=== PATIENT | female | born 1950 | race Caucasian/White ===

== ENCOUNTER → 2017-01-31 | Outpatient (CLI) | payer MEDICARE ==
[2017-01-31 09:02] LABS: MEAN CORPUSCULAR HEMOGLOBIN 31.5 pg (27.0-33.0); MEAN CORPUSCULAR HGB CONC 32.9 g/dl (32.0-36.5); MEAN CORPUSCULAR VOLUME 95.8 fl (80.0-96.0); RED CELL DISTRIBUTION WIDTH 13.4 % (11.5-14.5); WHITE BLOOD COUNT 3.9 K/mm3 (4.0-10.0)
[2017-01-31 09:24] LABS: ALBUMIN 3.5 GM/DL (3.2-5.2); ALBUMIN/GLOBULIN RATIO 1.13 (1.00-1.93); ALKALINE PHOSPHATASE 104 U/L (45-117); ALT/SGPT 20 U/L (12-78); ANION GAP 6 MEQ/L (8-16); AST/SGOT 23 U/L (15-37); BILIRUBIN,TOTAL 0.3 MG/DL (0.2-1.0); BLOOD UREA NITROGEN 14 MG/DL (7-18); CALCIUM LEVEL 8.2 MG/DL (8.8-10.2); CARBON DIOXIDE LEVEL 30 MEQ/L (21-32); CHLORIDE LEVEL 106 MEQ/L (98-107); CHOLESTEROL LEVEL 157 MG/DL (<200); CREATININE FOR GFR 0.82 MG/DL (0.55-1.02); GLOMERULAR FILTRATION RATE > 60.0 (>45); GLUCOSE, FASTING 94 MG/DL (80-110); SODIUM LEVEL 142 MEQ/L (136-145); TOTAL PROTEIN 6.6 GM/DL (6.4-8.2); TRIGLYCERIDES LEVEL 84 MG/DL (<150)
== END ==
LOC: M LAB 08:12
PROVIDERS: ATTEND Physician Assistant
DX: I25.10 Atherosclerotic heart disease of native coronary artery without angina pectoris (principal); I11.9 Hypertensive heart disease without heart failure; E78.00 Pure hypercholesterolemia, unspecified

== ENCOUNTER → 2017-08-17 | Outpatient (CLI) | payer MEDICARE ==
[2017-08-17 15:15] LABS: ALBUMIN 3.9 GM/DL (3.2-5.2); ALBUMIN/GLOBULIN RATIO 1.26 (1.00-1.93); ALKALINE PHOSPHATASE 104 U/L (45-117); ALT/SGPT 21 U/L (12-78); ANION GAP 7 MEQ/L (8-16); AST/SGOT 26 U/L (7-37); BILIRUBIN,TOTAL 0.4 MG/DL (0.2-1.0); BLOOD UREA NITROGEN 10 MG/DL (7-18); CALCIUM LEVEL 8.6 MG/DL (8.8-10.2); CARBON DIOXIDE LEVEL 28 MEQ/L (21-32); CHLORIDE LEVEL 104 MEQ/L (98-107); CREATININE FOR GFR 0.75 MG/DL (0.55-1.02); GLOMERULAR FILTRATION RATE > 60.0 (>45); GLUCOSE, FASTING 86 MG/DL (80-110); POTASSIUM SERUM 3.9 MEQ/L (3.5-5.1); SODIUM LEVEL 139 MEQ/L (136-145)
== END ==
LOC: M WUC 13:24
PROVIDERS: ATTEND Physician Assistant
DX: I25.10 Atherosclerotic heart disease of native coronary artery without angina pectoris (principal); I11.9 Hypertensive heart disease without heart failure; E78.00 Pure hypercholesterolemia, unspecified

== ENCOUNTER 2018-01-22 10:37 | Emergency (ER) | payer MEDICARE ==
[2018-01-22 13:34] LABS: BASO % 0.6 % (0.0-1.0); EOS # 0.1 10^3/uL (0.0-0.50); EOS % 1.1 % (0.0-3.0); HEMATOCRIT 42.2 % (36.0-47.0); HEMOGLOBIN 13.8 g/dl (12.0-15.5); IMMATURE GRANULOCYTE % 0.2 % (0-3.0); LYMPH # 1.3 10^3/uL (1.5-4.5); LYMPH % 23.9 % (24.0-44.0); MEAN CORPUSCULAR HEMOGLOBIN 31.1 pg (27.0-33.0); MEAN CORPUSCULAR HGB CONC 32.7 g/dl (32.0-36.5); MONO # 0.2 10^3/uL (0.0-0.8); MONO % 4.1 % (0.0-5.0); NEUTROPHILS # 3.8 10^3/uL (1.8-7.7); NEUTROPHILS % 70.1 % (36.0-66.0); PLATELET COUNT, AUTOMATED 210 10^3/uL (150-450); RED BLOOD COUNT 4.44 10^6/uL (4.00-5.40); RED CELL DISTRIBUTION WIDTH 13.2 % (11.5-14.5); WHITE BLOOD COUNT 5.4 10^3/uL (4.0-10.0)
[2018-01-22 13:55] LABS: ALBUMIN/GLOBULIN RATIO 1.14 (1.00-1.93); ALKALINE PHOSPHATASE 111 U/L (45-117); ALT/SGPT 19 U/L (12-78); ANION GAP 4 MEQ/L (8-16); AST/SGOT 29 U/L (7-37); BILIRUBIN,DIRECT < 0.1 MG/DL (0.0-0.2); BILIRUBIN,TOTAL 0.3 MG/DL (0.2-1.0); BLOOD UREA NITROGEN 9 MG/DL (7-18); CALCIUM LEVEL 8.8 MG/DL (8.8-10.2); CARBON DIOXIDE LEVEL 29 MEQ/L (21-32); CHLORIDE LEVEL 107 MEQ/L (98-107); CPK CREATINE PHOSPHOKINASE 115 U/L (26-192); CREATININE FOR GFR 0.84 MG/DL (0.55-1.30); GLOMERULAR FILTRATION RATE > 60.0 (>45); GLUCOSE, FASTING 84 MG/DL (70-100); LIPASE 197 U/L (73-393); POTASSIUM SERUM 4.3 MEQ/L (3.5-5.1); SODIUM LEVEL 140 MEQ/L (136-145); TOTAL PROTEIN 7.5 GM/DL (6.4-8.2); TROPONIN I < 0.02 NG/ML (< 0.10)
[2018-01-22 13:56] LABS: CK-MB VALUE MASS < 1.0 NG/ML (<3.6); MB/CK RELATIVE INDEX 0.86 (< OR =4)
== END 2018-01-22 14:16 | disposition home or self-care (01) ==
LOC: M ED 10:37
DX: R51 Headache (principal); M54.9 Dorsalgia, unspecified; R00.1 Bradycardia, unspecified; I45.19 Other right bundle-branch block; I25.2 Old myocardial infarction; J44.9 Chronic obstructive pulmonary disease, unspecified; K57.90 Diverticulosis of intestine, part unspecified, without perforation or abscess without bleeding; Z95.5 Presence of coronary angioplasty implant and graft; F17.200 Nicotine dependence, unspecified, uncomplicated; Z79.82 Long term (current) use of aspirin; Z79.899 Other long term (current) drug therapy
CPT/HCPCS: 71046

== ENCOUNTER → 2018-01-25 | Outpatient (CLI) | payer MEDICARE | LOC: M WUC 14:40 | DX: M16.11 Unilateral primary osteoarthritis, right hip (principal) | CPT/HCPCS: 73502 ==

== ENCOUNTER → 2018-02-19 | Outpatient (CLI) | payer MEDICARE ==
[2018-02-19 09:02] LABS: HEMATOCRIT 40.4 % (36.0-47.0); HEMOGLOBIN 13.3 g/dl (12.0-15.5); MEAN CORPUSCULAR HEMOGLOBIN 31.1 pg (27.0-33.0); MEAN CORPUSCULAR HGB CONC 32.9 g/dl (32.0-36.5); MEAN CORPUSCULAR VOLUME 94.6 fl (80.0-96.0); PLATELET COUNT, AUTOMATED 196 10^3/uL (150-450); RED BLOOD COUNT 4.27 10^6/uL (4.00-5.40); RED CELL DISTRIBUTION WIDTH 13.2 % (11.5-14.5)
[2018-02-19 09:34] LABS: ALBUMIN 3.6 GM/DL (3.2-5.2); ALBUMIN/GLOBULIN RATIO 1.09 (1.00-1.93); ALKALINE PHOSPHATASE 108 U/L (45-117); ALT/SGPT 18 U/L (12-78); ANION GAP 5 MEQ/L (8-16); AST/SGOT 24 U/L (7-37); BILIRUBIN,TOTAL 0.4 MG/DL (0.2-1.0); BLOOD UREA NITROGEN 9 MG/DL (7-18); CALCIUM LEVEL 8.8 MG/DL (8.8-10.2); CARBON DIOXIDE LEVEL 29 MEQ/L (21-32); CHLORIDE LEVEL 108 MEQ/L (98-107); CHOLESTEROL LEVEL 152 MG/DL (<200); CHOLESTEROL RISK RATIO 2.533 (<5); CREATININE FOR GFR 0.75 MG/DL (0.55-1.30); GLOMERULAR FILTRATION RATE > 60.0 (>45); GLUCOSE, FASTING 93 MG/DL (70-100); HDL CHOLESTEROL 60 MG/DL (>40); LDL CHOLESTEROL 76.6 MG/DL (<100); NON-HDL-C 92 MG/DL; POTASSIUM SERUM 4.4 MEQ/L (3.5-5.1); SODIUM LEVEL 142 MEQ/L (136-145); TOTAL PROTEIN 6.9 GM/DL (6.4-8.2); TRIGLYCERIDES LEVEL 77 MG/DL (<150)
== END ==
LOC: M WUC 08:24
DX: I25.10 Atherosclerotic heart disease of native coronary artery without angina pectoris (principal); I11.9 Hypertensive heart disease without heart failure; E78.00 Pure hypercholesterolemia, unspecified
CPT/HCPCS: 80053

== ENCOUNTER → 2018-02-28 | Outpatient (CLI) | payer MEDICARE | LOC: M RAD 12:03 | DX: R92.2 Inconclusive mammogram (principal); N63.20 Unspecified lump in the left breast, unspecified quadrant | CPT/HCPCS: 77067 ==

== ENCOUNTER → 2018-03-09 | Outpatient (CLI) | payer MEDICARE | LOC: M RAD 13:13 | DX: N63.20 Unspecified lump in the left breast, unspecified quadrant (principal) | CPT/HCPCS: 77065 ==

== ENCOUNTER → 2018-03-23 | Outpatient (CLI) | payer MEDICARE | LOC: M RAD 11:13 | DX: I70.293 Other atherosclerosis of native arteries of extremities, bilateral legs (principal); I65.23 Occlusion and stenosis of bilateral carotid arteries; Z95.820 Peripheral vascular angioplasty status with implants and grafts | CPT/HCPCS: 93880 ==

== ENCOUNTER → 2018-04-09 | Outpatient (CLI) | payer MEDICARE ==
[~2018-04-09] MED LIST: LIDOCAINE 1% MDV 20ML VIAL As Ordered
== END ==
LOC: M RADPRO 13:29
DX: D24.2 Benign neoplasm of left breast (principal)
CPT/HCPCS: 19083

== ENCOUNTER → 2018-04-11 | Outpatient (CLI) | payer MEDICARE ==
[2018-04-11 14:25] LABS: BASO % 0.6 % (0.0-1.0); EOS # 0.1 10^3/uL (0.0-0.50); EOS % 1.1 % (0.0-3.0); HEMATOCRIT 37.9 % (36.0-47.0); HEMOGLOBIN 12.2 g/dl (12.0-15.5); IMMATURE GRANULOCYTE % 0.3 % (0-3.0); LYMPH # 1.3 10^3/uL (1.5-4.5); LYMPH % 20.5 % (24.0-44.0); MEAN CORPUSCULAR HEMOGLOBIN 30.5 pg (27.0-33.0); MEAN CORPUSCULAR HGB CONC 32.2 g/dl (32.0-36.5); MEAN CORPUSCULAR VOLUME 94.8 fl (80.0-96.0); MONO # 0.3 10^3/uL (0.0-0.8); MONO % 4.4 % (0.0-5.0); NEUTROPHILS # 4.5 10^3/uL (1.8-7.7); NEUTROPHILS % 73.1 % (36.0-66.0); PLATELET COUNT, AUTOMATED 218 10^3/uL (150-450); RED CELL DISTRIBUTION WIDTH 13.6 % (11.5-14.5); WHITE BLOOD COUNT 6.2 10^3/uL (4.0-10.0)
[2018-04-11 14:39] LABS: ANION GAP 6 MEQ/L (8-16); BLOOD UREA NITROGEN 11 MG/DL (7-18); CALCIUM LEVEL 8.5 MG/DL (8.8-10.2); CARBON DIOXIDE LEVEL 28 MEQ/L (21-32); CHLORIDE LEVEL 106 MEQ/L (98-107); CREATININE FOR GFR 0.73 MG/DL (0.55-1.30); GLOMERULAR FILTRATION RATE > 60.0 (>45); GLUCOSE, FASTING 91 MG/DL (70-100); POTASSIUM SERUM 4.5 MEQ/L (3.5-5.1); SODIUM LEVEL 140 MEQ/L (136-145)
== END ==
LOC: M LAB 13:46
DX: I70.0 Atherosclerosis of aorta (principal); I70.213 Atherosclerosis of native arteries of extremities with intermittent claudication, bilateral legs
CPT/HCPCS: 80048

== ENCOUNTER → 2018-04-20 | Outpatient (CLI) | payer MEDICARE ==
[~2018-04-20] MED LIST changes: +HEPARIN 1,000 UNITS/ML 10ML VIAL (FOR RADIOLOGY& DIALYSIS ONLY) As Ordered; +ISOVUE-300 61% 50ML VIAL (Q9967) As Ordered; -LIDOCAINE 1% MDV 20ML VIAL As Ordered; +LIDOCAINE 2% MDV 20 ML VIAL As Ordered; +MIDAZOLAM INJ 2 MG/2 ML VIAL (J2250) As Ordered; +fentaNYL 100 MCG/2 ML INJECTION (J3010) As Ordered
== END | disposition home or self-care (01) ==
LOC: M IRPRO 06:27
DX: I70.213 Atherosclerosis of native arteries of extremities with intermittent claudication, bilateral legs (principal); T82.856A Stenosis of peripheral vascular stent, initial encounter; I70.0 Atherosclerosis of aorta; I25.10 Atherosclerotic heart disease of native coronary artery without angina pectoris; Z98.61 Coronary angioplasty status; I10 Essential (primary) hypertension; J44.9 Chronic obstructive pulmonary disease, unspecified; E78.00 Pure hypercholesterolemia, unspecified; F17.210 Nicotine dependence, cigarettes, uncomplicated
CPT/HCPCS: 37221

== ENCOUNTER → 2018-08-20 | Outpatient (CLI) | payer MEDICARE ==
[2018-08-20 14:13] LABS: ANION GAP 5 MEQ/L (8-16); BLOOD UREA NITROGEN 12 MG/DL (7-18); CALCIUM LEVEL 8.8 MG/DL (8.8-10.2); CARBON DIOXIDE LEVEL 29 MEQ/L (21-32); CHLORIDE LEVEL 104 MEQ/L (98-107); CREATININE FOR GFR 0.84 MG/DL (0.55-1.30); GLOMERULAR FILTRATION RATE > 60.0 (>45); GLUCOSE, FASTING 92 MG/DL (70-100); POTASSIUM SERUM 4.4 MEQ/L (3.5-5.1); SODIUM LEVEL 138 MEQ/L (136-145)
== END ==
LOC: M WUC 11:21
DX: I11.9 Hypertensive heart disease without heart failure (principal)
CPT/HCPCS: 80048

== ENCOUNTER → 2018-11-28 | Outpatient (CLI) | payer MEDICARE ==
[~2018-11-28] MED LIST changes: +ASPI1TAB20 PO; +ATOR80TA59; -HEPARIN 1,000 UNITS/ML 10ML VIAL (FOR RADIOLOGY& DIALYSIS ONLY) As Ordered; -ISOVUE-300 61% 50ML VIAL (Q9967) As Ordered; -LIDOCAINE 2% MDV 20 ML VIAL As Ordered; +LISI10TA4; -MIDAZOLAM INJ 2 MG/2 ML VIAL (J2250) As Ordered; +PARO40TA2; +PARO5TAB; +TRAZ-160; +VITA100067 PO; -fentaNYL 100 MCG/2 ML INJECTION (J3010) As Ordered
--- NOTE | 2018-11-28 10:06 | REP ---
Abdominal aortic ultrasound: 11/28/2018 Comparison 03/31/2016. Clinical history: Atherosclerosis. Has bilateral common iliac stents. Sonographic evaluation shows calcific and soft plaque scattered throughout the aorta. Proximal maximum diameter 2.7 cm AP x 2.3 cm transverse. At the renal artery level 2.2 cm AP x 2.3 cm transverse. The mid aorta is 2.1 x 2 cm and the distal aorta at the bifurcation 1.3 x 1.6 cm. The common iliac arteries have maximal diameter 1.2 cm right and 1.1 cm left. Stents are seen in the common iliac arteries. Impression: 1. Atherosclerotic plaque in the aorta with bilateral common iliac artery stents. No aneurysm or any gross progression of disease. Electronically Signed by Herman Lee MD 11/28/2018 09:47 P
--- NOTE | 2018-11-28 10:11 | REP ---
BILATERAL LOWER EXTREMITY DOPPLER ARTERIAL ULTRASOUND: 11/28/2018. Comparison: 03/23/2018. Clinical history: Atherosclerotic disease with intermittent claudication. Has common iliac artery stents. Findings: Right brachial artery measures 126, dorsalis pedis 140, SOFTWARE RELIABILITY ENGINEER 142. Right RIO is 1.1. The left brachial measures 128, dorsalis pedis 142 and SOFTWARE RELIABILITY ENGINEER 140. Left RIO is 1.1. Right common iliac artery stent velocities: Proximal 220 cm/S, mid 222.7 cm/S distal 142.9 cm/S. External iliac artery: 158.4 cm/S triphasic. The left common iliac artery stent has proximal velocity 134.5 cm/S, mid 189.4 cm/S distal 180.2 cm/S; left external iliac artery 128.9. Cm/S triphasic. Right lower extremity: Peak systolic velocity: Phasicity: CSA: 181.8 cm/S triphasic Profunda: 100.1 cm/S biphasic/monophasic SFA proximal: 133.7 cm/S triphasic SFA mid: 118.9 cm/S biphasic SFA distal: 64.7 cm/S biphasic Popliteal: 53.2 cm/S biphasic AT a proximal: 51.2 cm/S biphasic Tibioperoneal trunk: 64 cm/S biphasic SOFTWARE RELIABILITY ENGINEER proximal: 1.8 cm/S biphasic SOFTWARE RELIABILITY ENGINEER distal: 22.8 cm/S biphasic SOFTWARE RELIABILITY ENGINEER distal: 33.8 cm/S biphasic. Left lower extremity: Peak systolic velocity: Phasicity: CSA: 211 cm/S triphasic Profunda: 157 cm/S biphasic, monophasic SFA proximal: 141 cm/S triphasic SFA mid: 106.7 cm/S biphasic SFA distal: 55 cm/S biphasic Popliteal: 52.9 cm/S biphasic AT a proximal: 37.1 cm/S biphasic Tibioperoneal trunk: 67.6 cm/S biphasic SOFTWARE RELIABILITY ENGINEER proximal: 50.6 cm/S biphasic SOFTWARE RELIABILITY ENGINEER distal: 48.6 cm/S biphasic AT distal: 35.2 cm/S biphasic. Both common iliac artery stents remain patent. There is plaque throughout arteries in both lower extremities. However, triphasic and biphasic wave forms are maintained. Electronically Signed by Herman Lee MD 11/28/2018 10:03 A
== END ==
LOC: M RAD 06:57
PROVIDERS: ATTEND Surgery Vascular Surgery
DX: I70.213 Atherosclerosis of native arteries of extremities with intermittent claudication, bilateral legs (principal); I70.0 Atherosclerosis of aorta; Z95.820 Peripheral vascular angioplasty status with implants and grafts

== ENCOUNTER → 2019-02-19 | Outpatient (CLI) | payer MEDICARE ==
[~2019-02-19] MED LIST changes: -TRAZ-160; +TRAZ-252
[2019-02-19 12:55] LABS: HEMOGLOBIN 12.9 g/dl (12.0-15.5); MEAN CORPUSCULAR HEMOGLOBIN 29.8 pg (27.0-33.0); MEAN CORPUSCULAR HGB CONC 31.5 g/dl (32.0-36.5); MEAN CORPUSCULAR VOLUME 94.7 fl (80.0-96.0); PLATELET COUNT, AUTOMATED 214 10^3/uL (150-450); RED BLOOD COUNT 4.33 10^6/uL (4.00-5.40); WHITE BLOOD COUNT 9.4 10^3/uL (4.0-10.0)
[2019-02-19 13:41] LABS: ALBUMIN 3.5 GM/DL (3.2-5.2); ALT/SGPT 17 U/L (12-78); BILIRUBIN,TOTAL 0.2 MG/DL (0.2-1.0); BLOOD UREA NITROGEN 11 MG/DL (7-18); CALCIUM LEVEL 8.7 MG/DL (8.8-10.2); CARBON DIOXIDE LEVEL 26 MEQ/L (21-32); CHLORIDE LEVEL 107 MEQ/L (98-107); CHOLESTEROL LEVEL 151 MG/DL (<200); CHOLESTEROL RISK RATIO 2.849 (<5); CREATININE FOR GFR 0.78 MG/DL (0.55-1.30); GLOMERULAR FILTRATION RATE > 60.0 (>45); GLUCOSE, FASTING 86 MG/DL (70-100); HDL CHOLESTEROL 53 MG/DL (>40); LDL CHOLESTEROL 79 MG/DL (<100); NON-HDL-C 98 MG/DL; POTASSIUM SERUM 4.3 MEQ/L (3.5-5.1); SODIUM LEVEL 141 MEQ/L (136-145); TOTAL PROTEIN 6.8 GM/DL (6.4-8.2); TRIGLYCERIDES LEVEL 93 MG/DL (<150)
== END ==
LOC: M WUC 09:31
PROVIDERS: ATTEND Physician Assistant
DX: I25.10 Atherosclerotic heart disease of native coronary artery without angina pectoris (principal); I11.9 Hypertensive heart disease without heart failure; E78.00 Pure hypercholesterolemia, unspecified

== ENCOUNTER → 2019-09-20 | Outpatient (CLI) | payer MEDICARE ==
[~2019-09-20] MED LIST changes: -ASPI1TAB20 PO; +ASPI325T57 PO
--- NOTE | 2019-09-20 13:04 | REP ---
Bilateral lower extremity arterial Doppler ultrasound: History: Atherosclerosis. Claudication. Comparison study November 28, 2018. Findings: Ankle brachial indices are measured at 0.8 on the right and 0.9 on the left. Moderate plaquing is seen in the common femoral and superficial femoral arteries bilaterally. No significant focal stenosis is identified. Pelvic artery is not seen. Triphasic and biphasic waveforms are noted bilaterally in the lower extremities. Velocity chart right lower extremity: CF A 156 cm/S Profunda 70 Proximal SFA 98 Mid SFA 86 Distal SFA 77 Popliteal 45 Proximal AT A 52 Tibioperoneal trunk 59 Proximal GRANTS AND CONTRACTS ASSISTANT 43 Distal GRANTS AND CONTRACTS ASSISTANT 57 Distal AT A 39 Velocity chart left lower extremity: CF A 128 cm/S Profunda 131 Proximal SFA 129 Mid SFA 108 Distal SFA 76 Popliteal 37 Proximal AT A 42 Tibioperoneal trunk 45 Proximal GRANTS AND CONTRACTS ASSISTANT 51 Distal GRANTS AND CONTRACTS ASSISTANT 46 Distal AT A 31 Electronically Signed by Nile Hector MD 09/20/2019 12:55 P
== END ==
LOC: M RAD 11:01
PROVIDERS: ATTEND Physician Assistant
DX: I70.213 Atherosclerosis of native arteries of extremities with intermittent claudication, bilateral legs (principal); F17.218 Nicotine dependence, cigarettes, with other nicotine-induced disorders

== ENCOUNTER → 2019-10-08 | Outpatient (CLI) | payer MEDICARE ==
[2019-10-08 14:13] LABS: BLOOD UREA NITROGEN 11 MG/DL (7-18); CALCIUM LEVEL 8.8 MG/DL (8.8-10.2); CARBON DIOXIDE LEVEL 26 MEQ/L (21-32); CHLORIDE LEVEL 108 MEQ/L (98-107); CREATININE FOR GFR 0.82 MG/DL (0.55-1.30); GLOMERULAR FILTRATION RATE > 60.0 (>39); GLUCOSE, FASTING 85 MG/DL (70-100); POTASSIUM SERUM 4.2 MEQ/L (3.5-5.1); SODIUM LEVEL 140 MEQ/L (136-145)
== END ==
LOC: M WUC 10:54
PROVIDERS: ATTEND Physician Assistant
DX: I11.9 Hypertensive heart disease without heart failure (principal)

== ENCOUNTER 2019-12-20 20:24 | Emergency (ER) | payer MEDICARE ==
[~2019-12-20] VITALS: Ht 157.5 cm; Wt 61.3 kg
[2019-12-20] MEDS ORDERED: PANT40TA3 PO (20:58)
[2019-12-20 21:23] LABS: BASO % 0.5 % (0.0-1.0); EOS # 0.1 10^3/uL (0.0-0.5); EOS % 1.6 % (0.0-3.0); HEMATOCRIT 37.6 % (36.0-47.0); HEMOGLOBIN 12.3 g/dl (12.0-15.5); LYMPH # 1.5 10^3/uL (1.5-5.0); LYMPH % 27.4 % (24.0-44.0); MEAN CORPUSCULAR HEMOGLOBIN 30.8 pg (27.0-33.0); MEAN CORPUSCULAR HGB CONC 32.7 g/dl (32.0-36.5); MONO # 0.2 10^3/uL (0.0-0.8); MONO % 4.2 % (0.0-5.0); NEUTROPHILS # 3.7 10^3/uL (1.5-8.5); NEUTROPHILS % 65.9 % (36.0-66.0); PLATELET COUNT, AUTOMATED 208 10^3/uL (150-450); WHITE BLOOD COUNT 5.5 10^3/uL (4.0-10.0)
[2019-12-20 21:36] LABS: INR 0.9; PROTHROMBIN TIME 11.8 SECONDS (11.8-14.0)
[2019-12-20 21:37] LABS: PARTIAL THROMBOPLASTIN TIME 26.4 SECONDS (25.0-38.4)
[2019-12-20 21:39] LABS: D-DIMER QUANT 1429.76 ng/ml (<500)
[2019-12-20 21:51] LABS: BLOOD UREA NITROGEN 10 MG/DL (7-18); CALCIUM LEVEL 8.5 MG/DL (8.8-10.2); CARBON DIOXIDE LEVEL 28 MEQ/L (21-32); CHLORIDE LEVEL 108 MEQ/L (98-107); CPK CREATINE PHOSPHOKINASE 90 U/L (26-192); GLOMERULAR FILTRATION RATE > 60.0 (>39); GLUCOSE, FASTING 99 MG/DL (70-100); MB/CK RELATIVE INDEX 1.11 (< OR =4); POTASSIUM SERUM 3.9 MEQ/L (3.5-5.1); SODIUM LEVEL 138 MEQ/L (136-145); TROPONIN I < 0.02 NG/ML (< 0.10)
[2019-12-20 22:38] LABS: VENOUS BASE EXCESS -2.4 (-2.0-2.0); VENOUS HCO3 23.1 MEQ/L (23.0-27.0); VENOUS O2 SATURATION 86.6 % (60.0-80.0); VENOUS PARTIAL PRESSURE CO2 42.3 mmHg (38.0-50.0); VENOUS PARTIAL PRESSURE O2 52.8 mmHg (30.0-50.0); VENOUS PH 7.355 UNITS (7.330-7.430); VENOUS STANDARD HCO3 22.3 MEQ/L; VENOUS TOTAL CO2 24.4 MEQ/L (24.0-28.0)
[2019-12-20] MEDS ORDERED: ISOVUE-370 76% 100ML VIAL (Q9967) As Ordered ONE (22:43)
--- NOTE | 2019-12-20 23:16 | REPVR ---
PROCEDURE INFORMATION: Exam: CT Angiography Chest With Contrast Exam date and time: 12/20/2019 10:52 PM Age: 69 years old Clinical indication: Other: Hemoptysis TECHNIQUE: Imaging protocol: Computed tomographic angiography of the chest with intravenous contrast. 3D rendering: MIP and/or 3D reconstructed images were created by the technologist. Radiation optimization: All CT scans at this facility use at least one of these dose optimization techniques: automated exposure control; mA and/or kV adjustment per patient size (includes targeted exams where dose is matched to clinical indication); or iterative reconstruction. Contrast material: ISOVUE 370; Contrast volume: 75 ml; Contrast route: IV; COMPARISON: CT Chest with contrast 04/15/2016 8:41 AM FINDINGS: Pulmonary arteries: No focal pulmonary artery filling defect to suggest acute pulmonary embolus. Aorta: No thoracic aortic aneurysm or dissection. Lungs: Pulmonary vascular/interstitial pattern does not suggest active pulmonary edema. No suspicious lung mass or air space process. No central endobronchial lesion. Pleural space: No pleural effusion or pneumothorax. Heart: No overt cardiac enlargement or abnormal volume of pericardial fluid. Gallbladder and bile ducts: Gallbladder is surgically absent. Kidneys and ureters: Nonobstructive upper pole right renal stone is incidentally noted. Lymph nodes: No enlarged mediastinal lymph nodes. Bones/joints: Bony structures show no acute fracture or destructive process. IMPRESSION: 1. No evidence of acute pulmonary embolus. 2. No other acute or concerning focal intrathoracic abnormality. Electronically signed by: Frank Ribeiro On 12/20/2019 23:15:27 PM
--- NOTE | 2019-12-20 23:23 | REP ---
CHEST, SINGLE VIEW: Single view of the chest is performed and compared to prior study of 01/22/2018. No acute infiltrate is seen. There is mild interstitial prominence. The heart is not enlarged. There is calcification of the thoracic aorta. Mediastinal silhouette is unchanged. IMPRESSION: No acute pulmonary disease. Electronically Signed by Armando Ellison MD 12/20/2019 11:31 P
[2019-12-20 23:45] VITALS: BP 152/72
== END 2019-12-21 00:05 | disposition home or self-care (01) ==
LOC: M ED 20:24
DX: R05 Cough (principal); I25.10 Atherosclerotic heart disease of native coronary artery without angina pectoris; I10 Essential (primary) hypertension; J45.909 Unspecified asthma, uncomplicated; F41.9 Anxiety disorder, unspecified; Z95.5 Presence of coronary angioplasty implant and graft; F17.200 Nicotine dependence, unspecified, uncomplicated; Z79.82 Long term (current) use of aspirin; Z79.899 Other long term (current) drug therapy
CPT/HCPCS: 71045; 71275; 80048; 82550; 82553; 82803; 83605; 84484; 85025; 85379; 85610; 85730; 86140; 87040; 99284; Q9967

== ENCOUNTER → 2020-07-02 | Outpatient (CLI) | payer MEDICARE ==
[~2020-07-02] MED LIST changes: +PANT40TA29 PO
--- NOTE | 2020-07-02 13:10 | REP ---
INDICATION: CLAUDICATION occlusion and stenosis of bilateral carotid arteries. COMPARISON: Comparison carotid sonography March 23, 2018.. TECHNIQUE: Duplex carotid sonography is performed. FINDINGS: Antegrade flow is observed in both vertebral arteries. Right carotid: The right common carotid artery is unremarkable on two-dimensional scanning. There is mild mixed plaquing at the bulb and proximal ICA on two-dimensional scanning. Color flow and spectral Doppler interrogation unremarkable on the right. Velocity chart right carotid: Right CCA PSV 82 cm/S Right ICA PSV 101, EDV 44 Right ECA PSV 84 Right ICA/CCA ratio normal 1.2. Velocities have not increased since the prior study on the right. Left carotid: The left common carotid artery is unremarkable. There is mixed plaquing at the bulb proximal ICA and proximal ECA on the left side non two-dimensional scanning. Color flow and spectral Doppler interrogation unremarkable. Velocity chart left carotid: Left CCA PSV 56 cm/S Left ICA PSV 97 EDV 26 Left ECA PSV 66 Left ICA/CCA ratio normal 1.7 Doppler velocities are essentially unchanged from the comparison study in the left ICA. IMPRESSION: Less than 50% category narrowing in the left and right internal carotid artery by Doppler criteria. Doppler velocities have not increased since the prior study. <Electronically signed by Michael Hector > 07/02/20 [id number]
--- NOTE | 2020-07-02 13:18 | REP ---
INDICATION: CLAUDICATION peripheral vascular disease. COMPARISON: Comparison sonography September 20, 2019.. TECHNIQUE: Bilateral lower extremity arterial Doppler sonography is performed. FINDINGS: Mild to moderate plaquing is seen bilaterally particularly in the common femoral arteries. Relatively normal biphasic waveforms are noted throughout the arterial tree in both lower extremities. Slightly increased velocity is observed in the common femoral artery on the left. Ankle brachial indices are normal measuring 1.0 on the right and 0.97 on the left. Right lower extremity arterial Doppler velocity chart: Right JELLY MAKER PSV 129 cm/S Profundus 60 Proximal SFA 74 Mid SFA 79 Distal SFA 61 Popliteal 44 Proximal NICHO 46 Tibial-peroneal trunk 79 Proximal KILN OPERATOR HELPER 69 Distal KILN OPERATOR HELPER 51 Distal NICHO 30 Left lower extremity arterial Doppler velocity chart: Left JELLY MAKER PSV 191 cm/S Profundal 124 Proximal SFA 92 Mid SFA 75 Distal SFA 62 Popliteal 40 Proximal NICHO 72 Tibial-peroneal trunk 64 Proximal KILN OPERATOR HELPER 33 Distal KILN OPERATOR HELPER 51 Distal NICHO 29 IMPRESSION: Bilateral lower extremity arterial Doppler sonography as above. <Electronically signed by Michael Hector > 07/02/20 [id number]
== END ==
LOC: M RAD 11:15
PROVIDERS: ATTEND Physician Assistant
DX: I70.213 Atherosclerosis of native arteries of extremities with intermittent claudication, bilateral legs (principal); I65.23 Occlusion and stenosis of bilateral carotid arteries

== ENCOUNTER → 2020-08-12 | Outpatient (CLI) | payer MEDICARE ==
[~2020-08-12] MED LIST changes: +ALEV220T22 PO; +ASPI81TA26 PO; -ATOR80TA59; +ATOR80TA59 PO; -LISI10TA4; +LISI10TA4 PO; +NITR4TASL SL; -TRAZ-252; +TRAZ-252 PO
== END ==
LOC: M LABSMTC 10:03
PROVIDERS: ATTEND Anesthesiology
DX: Z01.812 Encounter for preprocedural laboratory examination (principal); Z20.828 Contact with and (suspected) exposure to other viral communicable diseases

== ENCOUNTER 2020-08-17 09:07 | Day surgery (SDC) | payer MEDICARE ==
[~2020-08-17] VITALS: Ht 154.9 cm; Wt 58.5 kg
[~2020-08-17 09:07] MED LIST changes: +NS 1,000 ML IV ONE
[2020-08-17] MEDS ORDERED: LIDOCAINE 2% 100MG/5ML SDV (FOR ANES.) As Ordered ONE (09:51)
[2020-08-17] MEDS ORDERED: propofoL 200 MG/20 ML VIAL As Ordered ONE (09:52)
--- NOTE | 2020-08-17 11:34 | ROOR ---
Patient Name: Mayte Urena Procedure Date: 08/17/2020 11:06 AM Date of : 1950 Age: 70 Room: [facility] Gender: Female Note Status: Finalized Procedure: Colonoscopy Indications: High risk colon cancer surveillance: Personal history of colonic polyps Providers: Maverick TIMMONS MD Referring MD: WALLY HADDAD Requesting Provider: Medicines: Monitored Anesthesia Care Complications: No immediate complications. Procedure: Pre-Anesthesia Assessment: - The heart rate, respiratory rate, oxygen saturations, blood pressure, adequacy of pulmonary ventilation, and response to care were monitored throughout the procedure. The Colonoscope was introduced through the anus and advanced to the cecum, identified by appendiceal orifice and ileocecal valve. The colonoscopy was performed without difficulty. The patient tolerated the procedure well. The quality of the bowel preparation was adequate. Findings: The perianal and digital rectal examinations were normal. Four sessile polyps were found in the sigmoid colon. The polyps were 4 to 5 mm in size. These polyps were removed with a cold snare. Resection and retrieval were complete. Mild sigmoid diverticulosis and small internal hemorrhoids. The exam was otherwise normal throughout the examined colon. Impression: - Four 4 to 5 mm polyps in the sigmoid colon, removed with a cold snare. Resected and retrieved. - Mild sigmoid diverticulosis and small internal hemorrhoids. - The exam was otherwise normal to the cecum. Recommendation: - Repeat colonoscopy in 3 years for surveillance. Procedure Code(s): --- Professional --- 38644, Colonoscopy, flexible; with removal of tumor(s), polyp(s), or other lesion(s) by snare technique Diagnosis Code(s): --- Professional --- K63.5, Polyp of colon Z86.010, Personal history of colonic polyps CPT copyright 2019 [employer]. All rights reserved. The codes documented in this report are preliminary and upon citrix engineer review may be revised to meet current compliance requirements. Maverick Timmons MD Maverick TIMMONS MD 08/17/2020 11:34:18 AM Electronically signed by Maverick TIMMONS MD Number of Addenda: 0 Note Initiated On: 08/17/2020 11:06 AM Estimated Blood Loss: Estimated blood loss: none.
[2020-08-17 12:00] VITALS: BP 155/73
== END 2020-08-17 13:00 | disposition home or self-care (01) ==
LOC: M OPP 09:07
PROVIDERS: ATTEND Internal Medicine Gastroenterology
DX: Z12.11 Encounter for screening for malignant neoplasm of colon (principal); Z86.010 Personal history of colon polyps; D12.5 Benign neoplasm of sigmoid colon; K21.9 Gastro-esophageal reflux disease without esophagitis; K57.30 Diverticulosis of large intestine without perforation or abscess without bleeding; K64.8 Other hemorrhoids; F17.210 Nicotine dependence, cigarettes, uncomplicated; Z79.899 Other long term (current) drug therapy; Z95.5 Presence of coronary angioplasty implant and graft

== ENCOUNTER → 2021-07-16 | Outpatient (CLI) | payer MEDICARE ==
[~2021-07-16] MED LIST changes: +LISI10TA22 PO; -LISI10TA4 PO; -NS 1,000 ML IV ONE
--- NOTE | 2021-07-16 15:00 | REP ---
INDICATION: Assess stenosis TECHNIQUE: Carotid ultrasonography was performed bilaterally FINDINGS: Right: CCA systolic: 80.8 centimeters/second CCA diastolic: 17.4 centimeters/second ICA systolic: 98.2 centimeters/second ICA diastolic: 34.8 centimeters/second ICA CCA ratio: 1.21 Left: CCA systolic: 73.3 centimeters/second CCA diastolic: 21.7 centimeters/second ICA systolic: 117.0 centimeters/second ICA diastolic: 30.3 centimeters/second ICA CCA ratio: 1.59 Vertebral artery: Right: Antegrade flow left: Antegrade flow Echogenic material is seen along the carotid arterial davidson some of which casts and acoustic shadow IMPRESSION: According to the SRU criteria there is less than 50% stenosis of the internal carotid artery bilaterally. This is secondary to both calcified and noncalcified atheromatous plaque formation. <Electronically signed by Phil Lizama > 07/16/21 [id number]
--- NOTE | 2021-07-16 15:08 | REP ---
INDICATION: STENOSIS, CLAUDICATION COMPARISON: None. TECHNIQUE: Bilateral lower extremity arterial ultrasound with Doppler FINDINGS: All numeric values represent peak systolic velocities in cm/SEC On the right: The ankle brachial index is 1.04 TRANSFORMER COIL WINDER: 181 triphasic Profunda: 225 biphasic SFA proximal: 107 biphasic SFA mid: 95 biphasic SFA distal: 99 biphasic Popliteal: 52 biphasic Tibioperoneal trunk: 52 biphasic OFFICE ASSISTANCE proximal: 63 biphasic OFFICE ASSISTANCE distal: 59 biphasic Peroneal proximally not visualized Peroneal distal not visualized NICHO proximal: 86 biphasic NICHO distal: 42 biphasic On the left: The ankle brachial index is 1.0 TRANSFORMER COIL WINDER: 174 biphasic Profunda: 138 biphasic SFA proximal: 143 biphasic SFA mid: 97 biphasic SFA distal: 88 biphasic Popliteal: 66 biphasic Tibioperoneal trunk: 56 biphasic OFFICE ASSISTANCE proximal: 65 biphasic OFFICE ASSISTANCE distal: 76 biphasic Peroneal proximally not visualized Peroneal distally not visualized NICHO proximal: 72 biphasic NICHO distal: 55 biphasic Moderate to severe plaque formation with calcification was seen bilaterally from the common femoral vein to the ankle. No significant stenosis was seen on the right with some narrowing of the TRANSFORMER COIL WINDER on the left which was minimal. No significant stenosis was identified. IMPRESSION: As above <Electronically signed by Phil Lizama > 07/16/21 [id number]
== END ==
LOC: M RAD 12:36
PROVIDERS: ATTEND Surgery Vascular Surgery
DX: I65.23 Occlusion and stenosis of bilateral carotid arteries (principal); I70.213 Atherosclerosis of native arteries of extremities with intermittent claudication, bilateral legs